=== PATIENT | male | born 1980 ===

== ENCOUNTER 2017-12-26 11:32 | Emergency (ER) | payer OTHER ==
[~2017-12-26] VITALS: Ht 182.9 cm; Wt 113.4 kg
[2017-12-26] MEDS ORDERED: [UNRECOGNIZED DRUG - OTHER] (12:04)
[2017-12-26] MEDS ORDERED: CIPRO500 MG PO (18:51)
[2017-12-26] MEDS ORDERED: ZANTAC300 MG PO (18:51)
[2017-12-26] MEDS ORDERED: INTESTINEX680 M1 PO (18:51)
[2017-12-26] MEDS ORDERED: DICY20TA PO (18:51)
[2017-12-26] MEDS ORDERED: METRONIDAZOLE500 MG PO (18:51)
== END 2017-12-26 19:46 | disposition home or self-care (01) ==
LOC: ER 11:32
DX: S06.2X9A Diffuse traumatic brain injury with loss of consciousness of unspecified duration, initial encounter (principal); K52.89 Other specified noninfective gastroenteritis and colitis; E86.0 Dehydration; R55 Syncope and collapse; W01.198A Fall on same level from slipping, tripping and stumbling with subsequent striking against other object, initial encounter; Y93.E8 Activity, other personal hygiene; Y92.012 Bathroom of single-family (private) house as the place of occurrence of the external cause; Y99.8 Other external cause status